=== PATIENT | male | born 1960 | race Caucasian/White ===

== ENCOUNTER 2018-02-27 19:50 | Emergency (ER) | payer MEDICAID ==
[2018-02-27 20:19] VITALS: BP 129/74; PULSE 83; TEMP 98.5; O2SAT 97
--- NOTE | 2018-02-27 22:35 | C.PDOC ---
History Of Present Illness 57 y/o male comes in for evaluation of left flank pain, developing gradually over past few days. Reports pain is localized, worse with movement. 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 Otherwise he denies direct injury, fever, chills, abdominal pain, or UTI symptoms. (Promise Nguyen) History Per: Patient History/Exam Limitations: no limitations Onset/Duration Of Symptoms: Days Current Symptoms Are (Timing): Still Present Exacerbating Factor(s): Movement Time Seen by Provider: 02/27/18 22:22 Chief Complaint (Nursing): Back Pain Past Medical History Reviewed: Historical Data, Nursing Documentation, Vital Signs - Medical History PMH: HTN Denies: Chronic Kidney Disease Surgical History: No Surg Hx Family History: States: No Known Family Hx - Social History Hx Tobacco Use: No Hx Alcohol Use: No Hx Substance Use: No - Immunization History Hx Tetanus Toxoid Vaccination: No Hx Influenza Vaccination: No Hx Pneumococcal Vaccination: No Vital Signs: Last Vital Signs Temp 98.5 F 02/27/18 20:17 Pulse 83 02/27/18 20:17 Resp 20 02/28/18 00:22 BP 129/74 02/27/18 20:17 Pulse Ox 97 02/27/18 23:52 Review Of Systems Constitutional: Negative for: Fever, Chills Gastrointestinal: Negative for: Abdominal Pain Genitourinary: Negative for: Dysuria, Frequency, Hematuria Musculoskeletal: Positive for: Other (left flank pain) Physical Exam - Physical Exam Appears: Well, Non-toxic, No Acute Distress Skin: Normal Color, Warm, Dry, No Rash Head: Normacephalic Eye(s): bilateral: PERRL Nose: No Discharge Oral Mucosa: Moist Throat: No Erythema, No Drooling Neck: Trachea Midline, Supple Cardiovascular: Rhythm Regular Respiratory: No Decreased Breath Sounds, No Accessory Muscle Use, No Stridor, No Wheezing Gastrointestinal/Abdominal: Soft, No Tenderness, No Distention, No Guarding Back: No CVA Tenderness, No Vertebral Tenderness, Decreased ROM (l-spine due to pain), Muscle Spasm, Paraspinal Tenderness (Left distal thoracic, proximal lumbar paraspinal with mod muscle spasm.), Straight Leg Raising (Right (+) at 70 degrees, Left (+) at 50 degrees), Other (Right flank tenderness) Extremity: Normal ROM, No Deformity, No Swelling Neurological/Psych: Oriented x3, Normal Speech, Normal Motor, Normal Sensation, Normal Reflexes ED Course And Treatment O2 Sat by Pulse Oximetry: 97 (RA) Pulse Ox Interpretation: Normal Progress Note: Valium, tramadol and motrin PO given. UA ordered and reviewed. Urine is clear. On reevaluation, patient remains alert, awake, afebrile throughout ED observation. Patient reports improvement in pain and is stable for discharge home Reassessment Condition: Improved Disposition Counseled Patient/Family Regarding: Studies Performed, Diagnosis, Need For Followup, Rx Given - Disposition Disposition Time: 23:19 - POA Present On Arrival: None - Disposition Referrals: Aliya Kilpatrick MD [Staff Provider] - Disposition: HOME/ ROUTINE Condition: STABLE Additional Instructions: Light duty to lower back Take pain medication as prescribed Follow up with PMD in 2 days for re-evaluation. Return to ED if any worsening or new changes. Prescriptions: Gabapentin [Neurontin] 300 mg PO TID #14 cap Ibuprofen [Motrin Tab] 600 mg PO Q6 #20 tab Methocarbamol [Robaxin] 500 mg PO TID #14 tab traMADol [Ultram] 50 mg PO TID #7 tab Instructions: Flank Pain, Muscle Spasms (DC) Forms: [employer] (Yi) - Clinical Impression Clinical Impression: Low back strain, Flank pain - PA / PROCESS CONSULTANT / Resident Statement MD/DO has reviewed & agrees with the documentation as recorded. - Scribe Statement The provider has reviewed the documentation as recorded by the Scribe (Shital Omer) - Scribe Statement All medical record entries made by the Scribe were at my direction and personally dictated by me. I have reviewed the chart and agree that the record accurately reflects my personal performance of the history, physical exam, medical decision making, and the department course for this patient. I have also personally directed, reviewed, and agree with the discharge instructions and disposition. (Promise Nguyen)
[2018-02-27 23:08] LABS: SQUAMOUS EPITHIAL < 1 /hpf (0-5); URINE BACTERIA MOD (<OCC); URINE BILIRUBIN NEGATIVE (NEGATIVE); URINE BLOOD NEGATIVE (NEGATIVE); URINE CLARITY Clear (Clear); URINE COLOR Yellow (YELLOW); URINE GLUCOSE (UA) NORMAL (Normal); URINE LEUKOCYTE ESTERASE NEG Leu/uL (Negative); URINE PROTEIN 1+ mg/dL (NEGATIVE); URINE UROBILINOGEN NORMAL mg/dL (0.2-1.0)
[2018-02-28 00:23] VITALS: RESP 20
== END 2018-02-28 00:22 | disposition home or self-care (01) ==
LOC: C.ER 19:50
DX: S39.012A Strain of muscle, fascia and tendon of lower back, initial encounter (principal); X50.0XXA Overexertion from strenuous movement or load, initial encounter; Y92.89 Other specified places as the place of occurrence of the external cause; R10.9 Unspecified abdominal pain